=== PATIENT | female | born 1980 ===

== ENCOUNTER 2024-10-07 13:44 | Inpatient (IN) | payer OTHER ==
[2024-10-07] MEDS ORDERED: Sodium Chloride 0.9% 10 ML Syringe FLUSH PRN (14:22)
[2024-10-07] MEDS: Alum Hydrox/Mag Hydrox/Simeth 30 ML, Lidocaine 2% 15 ML PO ONE (14:44)
[2024-10-07] MEDS: Ondansetron 4 MG/2 ML SDV IVPUSH ONE (14:44)
[2024-10-07 14:57] LABS: BASOPHILS ABSOLUTE AUTO 0.0 K/mm3 (0.0-0.2); BASOPHILS PERCENT AUTO 0.3 % (0.0-1.0); EOSINOPHILS ABSOLUTE AUTO 0.0 K/mm3 (0.0-0.4); EOSINOPHILS PERCENT AUTO 0.3 % (0.0-6.0); IMMATURE GRAN ABSOLUTE AUTO 0.03 K/mm3 (0.00-0.05); IMMATURE GRAN PERCENT AUTO 0.3 % (0.0-0.4); LYMPHOCYTES ABSOLUTE AUTO 0.9 K/mm3 (1.0-4.8); LYMPHOCYTES PERCENT AUTO 10.0 % (24.0-44.0); MEAN PLATELET VOLUME 10.6 fl (9.4-12.3); MONOCYTES ABSOLUTE AUTO 0.7 K/mm3 (0.0-0.8); MONOCYTES PERCENT AUTO 7.9 % (0.0-8.0); NEUTROPHILS ABSOLUTE AUTO 7.1 K/mm3 (1.8-7.7); NEUTROPHILS PERCENT AUTO 81.2 % (41.0-71.0); NRBC ABSOLUTE 0.00 (0.00-0.02); NRBC PERCENT 0.0 % (0.0-0.2); PLATELET COUNT,PLT 195 K/mm3 (150-400); RED BLOOD CELL COUNT 4.50 M/mm3 (4.10-5.30); WHITE BLOOD CELL COUNT,WBC 8.71 K/mm3 (3.9-11.3)
[2024-10-07 15:14] LABS: A/G RATIO 1.1 (1-2); ALANINE AMINOTRANSFERASE,ALT 30.0 U/L (14-59); ASPARTATE AMNIOTRANSFERASE,AST 19.0 U/L (15-37); BILIRUBIN TOTAL 0.6 mg/dL (0.2-1.0); BLOOD UREA NITROGEN,BUN 16.0 mg/dL (7-18); CARBON DIOXIDE,CO2 28.0 mEq/L (21-32); CHLORIDE,CL 104.0 mEq/L (98-107); CREATININE 0.9 mg/dL (0.55-1.02); EST CRCL DRUG DOSING (CG) 65.98 mL/min; ESTIMATED GFR 81.0 mL/min (>60); GLUCOSE RANDOM 107.0 mg/dL (70-99); POTASSIUM,K 3.8 mEq/L (3.5-5.1); PROTEIN TOTAL,TP 7.5 g/dl (6.4-8.2); SODIUM,NA 140.0 mEq/L (136-145)
[2024-10-07] MEDS: Sodium Chloride 0.9% 10 ML Syringe FLUSH ONE (15:48)
[2024-10-07] MEDS: Iopamidol 612 MG/ML 100 ML Bottle IVPUSH ONE (15:48)
[2024-10-07 17:01] LABS: APPEARANCE,URINE CLEAR (Clear); GLUCOSE,URINE NEGATIVE (Negative); OCCULT BLOOD,URINE NEGATIVE (Negative)
[2024-10-07 17:08] LABS: SQUAMOUS EPITHELIAL CELLS,UR 0-5 /hpf (0-5)
[2024-10-07] MEDS ORDERED: Ondansetron 4 MG/2 ML SDV IV PRN (17:42)
[2024-10-07] MEDS ORDERED: Midazolam 1 MG/ML 2 ML SDV ONE (17:43)
[2024-10-07] MEDS ORDERED: propofoL 500 MG/50 ML 100 ML ONE (17:43)
[2024-10-07] MEDS ORDERED: fentaNYL 250 MCG/5 ML SDV ONE (17:43)
[2024-10-07] MEDS ORDERED: Ondansetron 4 MG/2 ML SDV ONE (17:46)
[2024-10-07] MEDS ORDERED: Dexamethasone 4 MG/ML 5 ML MDV ONE (17:46)
[2024-10-07] MEDS: Benzocaine 20% Topical Spray UD MUCMEM ONE (17:58)
[2024-10-07] MEDS ORDERED: Phenylephrine 1% 10 MG/ML SDV ONE (18:09)
[2024-10-07] MEDS ORDERED: Lactated Ringers 1,000 ML ONE (18:29)
[2024-10-07] MEDS ORDERED: Ketorolac 30 MG/ML SDV ONE (18:45)
[2024-10-07] MEDS: EPINEPHrine 1 MG/ML SDV ONE (19:22)
[2024-10-07] MEDS ORDERED: fentaNYL 100 MCG/2 ML SDV IVPUSH PRN (20:05)
[2024-10-07] MEDS: Lactated Ringers 1,000 ML IV SCH (20:59)
[2024-10-08 06:06] LABS: BASOPHILS ABSOLUTE AUTO 0.0 K/mm3 (0.0-0.2); BASOPHILS PERCENT AUTO 0.1 % (0.0-1.0); EOSINOPHILS ABSOLUTE AUTO 0.0 K/mm3 (0.0-0.4); EOSINOPHILS PERCENT AUTO 0.0 % (0.0-6.0); IMMATURE GRAN ABSOLUTE AUTO 0.03 K/mm3 (0.00-0.05); IMMATURE GRAN PERCENT AUTO 0.4 % (0.0-0.4); LYMPHOCYTES ABSOLUTE AUTO 0.9 K/mm3 (1.0-4.8); LYMPHOCYTES PERCENT AUTO 10.3 % (24.0-44.0); MEAN PLATELET VOLUME 11.2 fl (9.4-12.3); MONOCYTES ABSOLUTE AUTO 0.4 K/mm3 (0.0-0.8); MONOCYTES PERCENT AUTO 5.2 % (0.0-8.0); NEUTROPHILS ABSOLUTE AUTO 7.0 K/mm3 (1.8-7.7); NEUTROPHILS PERCENT AUTO 84.0 % (41.0-71.0); NRBC ABSOLUTE 0.00 (0.00-0.02); NRBC PERCENT 0.0 % (0.0-0.2); PLATELET COUNT,PLT 173 K/mm3 (150-400); RED BLOOD CELL COUNT 3.76 M/mm3 (4.10-5.30); WHITE BLOOD CELL COUNT,WBC 8.28 K/mm3 (3.9-11.3)
[2024-10-08 06:43] LABS: BLOOD UREA NITROGEN,BUN 11.0 mg/dL (7-18); CARBON DIOXIDE,CO2 22.0 mEq/L (21-32); CHLORIDE,CL 105.0 mEq/L (98-107); CREATININE 0.6 mg/dL (0.55-1.02); EST CRCL DRUG DOSING (CG) 98.98 mL/min; ESTIMATED GFR 113.0 mL/min (>60); GLUCOSE RANDOM 106.0 mg/dL (70-99); POTASSIUM,K 3.9 mEq/L (3.5-5.1); SODIUM,NA 137.0 mEq/L (136-145)
== END 2024-10-08 10:00 | disposition home or self-care (01) | DRG 358 ==
LOC: JD.ED 13:44 → JD.SDS 18:31 → JD.MS 20:43
PROVIDERS: ADMIT Surgery; ATTEND Surgery
PROC: 0D9670Z Drainage of Stomach with Drainage Device, Via Natural or Artificial Opening (ICD-10-PCS; 2024-10-07)
PROC: 0WJG4ZZ Inspection of Peritoneal Cavity, Percutaneous Endoscopic Approach (ICD-10-PCS; principal; 2024-10-07 19:17)
DX: K56.50 Intestinal adhesions [bands], unspecified as to partial versus complete obstruction (principal); F41.9 Anxiety disorder, unspecified; L40.9 Psoriasis, unspecified; Z91.018 Allergy to other foods; Z79.899 Other long term (current) drug therapy
CPT/HCPCS: 00840; 36415; 74177; 74177-26; 80048; 80053; 81001; 83690; 84703; 85025; 86140; 96361; 96374; 99140; 99285; 99285-25; A9270-GY; J0171; J0665; J1100; J1171; J1885; J2003; J2250; J2371; J2405; J2704; J3010; J3490; J7030; J7120; Q9967